=== PATIENT | female | born 2005 | race Caucasian/White ===

== ENCOUNTER 2024-09-22 22:23 | Inpatient (IN) | payer BC, MEDICAID ==
[~2024-09-22] VITALS: Ht 165.1 cm; Wt 67.6 kg
[2024-09-22 22:55] VITALS: O2SAT 100
[2024-09-22 23:28] LABS: BASOPHILS % 0.6 % (0.0-2.0); EOSINOPHILS % 1.0 % (0.0-5.0); HEMATOCRIT. 36.4 % (36.0-48.0); HEMOGLOBIN. 12.4 g/dL (12.0-16.0); LYMPHOCYTES % 26.1 % (20.0-50.0); MEAN PLATELET VOLUME 8.2 fl (7.4-10.4); MONOCYTES % 4.7 % (2.0-8.0); NEUTROPHILS % 67.6 % (40.0-76.0); PLATELET 254 x1000/uL (130-400); RED BLOOD CELL COUNT 4.16 mill/uL (4.2-5.4); RED CELL DISTRIBUTION WIDTH 12.8 % (11.6-14.6)
[2024-09-22 23:41] LABS: CREATININE 0.6 mg/dL (0.6-1.0); UREA NITROGEN BLOOD 10 mg/dL (9-23)
[2024-09-22 23:42] LABS: ETHANOL BLOOD 89 mg/dL (<10)
[2024-09-22 23:59] LABS: HCG SCREEN NEGATIVE
[2024-09-23] MEDS: LORAZEPAM 2MG/ML UD SYRINGE IV NR
[2024-09-23] MEDS: SODIUM CHLORIDE 0.9% 1,000 ML IV ONE
[2024-09-23] MEDS: TOPIRAMATE 25MG TABLET PO NR (00:11)
[2024-09-23 01:39] LABS: CLARITY URINE CLEAR (CLEAR); COLOR URINE YELLOW (YELLOW); GLUCOSE URINE NEGATIVE (NEGATIVE); KETONES URINE NEGATIVE (NEGATIVE); LEUKOCYTE ESTERASE URINE NEGATIVE (NEGATIVE); NITRITE URINE NEGATIVE (NEGATIVE); OCCULT BLOOD URINE NEGATIVE (NEGATIVE); PH URINE 7.5 (4.5-8.0); PROTEIN URINE NEGATIVE (NEGATIVE); SPECIFIC GRAVITY URINE 1.008 (1.005-1.030); UROBILINOGEN URINE 0.2 E.U./dL (0.2-1.0)
[2024-09-23 02:08] LABS: *AMPHETAMINES SCREEN URINE NEGATIVE (NEGATIVE); *BARBITURATES SCREEN URINE NEGATIVE (NEGATIVE); *BENZODIAZEPINES SCREEN URINE NEGATIVE (NEGATIVE); *COCAINE SCREEN URINE NEGATIVE (NEGATIVE); CANNABINOID URINE SCREEN NEGATIVE (NEGATIVE); ECSTASY MDMA SCREEN URINE NEGATIVE (NEGATIVE); METHADONE URINE SCREEN NEGATIVE (NEGATIVE); OPIATES URINE SCREEN NEGATIVE (NEGATIVE); PHENCYCLIDINE URINE SCREEN NEGATIVE (NEGATIVE)
[2024-09-23] MEDS ORDERED: VENL25TA4 MT (03:12)
[2024-09-23] MEDS ORDERED: FLUO1POW12 MC (03:12)
[2024-09-23] MEDS ORDERED: SUMA25TA9 MT (03:12)
[2024-09-23] MEDS ORDERED: BUSP10TA4 PO (03:12)
[2024-09-23] MEDS ORDERED: TOP100 PO (03:12)
[2024-09-23 03:40] VITALS: BP 109/67; PULSE 104; RESP 20; TEMP 37.53
[2024-09-23 04:00] VITALS: BP 130/75; PULSE 75; RESP 18; TEMP 36.6; O2SAT 99
[2024-09-23] MEDS ORDERED: CLONIDINE 0.1MG TABLET PO PRN (06:30)
[2024-09-23] MEDS ORDERED: DOCUSATE SODIUM 100MG CAPSULE PO PRN (06:30)
[2024-09-23] MEDS ORDERED: IPRATROPIUM/ALBUTEROL 0.5-3(2.5)MG/3ML NEB HHN PRN (06:30)
[2024-09-23] MEDS ORDERED: ONDANSETRON HCL 4MG/2ML INJ IV PRN (06:30)
[2024-09-23] MEDS ORDERED: ACETAMINOPHEN 325MG TABLET PO PRN ×2 (06:30)
[2024-09-23 07:36] LABS: BASOPHILS % 0.3 % (0.0-2.0); EOSINOPHILS % 0.8 % (0.0-5.0); HEMATOCRIT. 37.1 % (36.0-48.0); HEMOGLOBIN. 12.5 g/dL (12.0-16.0); LYMPHOCYTES % 17.2 % (20.0-50.0); MEAN PLATELET VOLUME 8.6 fl (7.4-10.4); MONOCYTES % 6.7 % (2.0-8.0); NEUTROPHILS % 75.0 % (40.0-76.0); PLATELET 249 x1000/uL (130-400); RED BLOOD CELL COUNT 4.24 mill/uL (4.2-5.4); RED CELL DISTRIBUTION WIDTH 12.7 % (11.6-14.6)
[2024-09-23 07:38] LABS: CREATININE 0.5 mg/dL (0.6-1.0)
[2024-09-23 07:39] LABS: UREA NITROGEN BLOOD 7 mg/dL (9-23)
[2024-09-23 07:40] LABS: ASPARTATE AMINOTRANSFERASE 28 IU/L (<34); BILIRUBIN DIRECT 0.1 mg/dL (<=3.0)
[2024-09-23 07:41] LABS: BILIRUBIN TOTAL 0.4 mg/dL (0.1-1.0); PHOSPHORUS 2.9 mg/dL (2.5-4.9); PROTEIN TOTAL 6.3 g/dL (6.0-8.3)
[2024-09-23 08:00] VITALS: BP 127/65; PULSE 79; RESP 18; TEMP 36.9; O2SAT 99
[2024-09-23 08:16] LABS: HEPATITIS C AB NON REACTIVE (Neg) (Negative)
[2024-09-23] MEDS ORDERED: TOPIRAMATE 100MG TABLET PO SCH (09:00)
[2024-09-23] MEDS: LEVETIRACETAM 500MG TABLET PO SCH (09:11)
[2024-09-23] MEDS: THIAMINE HCL 100MG TABLET PO SCH (09:12)
[2024-09-23] MEDS: TOPIRAMATE 25MG TABLET PO SCH (09:12)
[2024-09-23] MEDS: MULTIVITAMINS,THER W-MINERALS TABLET PO SCH (09:12)
[2024-09-23] MEDS: BUSPIRONE HCL 5MG TABLET PO SCH (09:17)
[2024-09-23] MEDS: FOLIC ACID 1MG TABLET PO SCH (09:17)
[2024-09-23] MEDS: FLUOXETINE HCL 10 MG CAPSULE PO SCH (09:19)
[2024-09-23 12:00] VITALS: BP 110/60; PULSE 81; RESP 20; TEMP 36.7; O2SAT 98
[2024-09-23] MEDS ORDERED: LORAZEPAM 1MG TABLET PO PRN (12:55)
[2024-09-23 13:18] LABS: INR 1.0
[2024-09-23 16:00] VITALS: BP 118/67; PULSE 83; RESP 20; TEMP 36.7; O2SAT 99
== END 2024-09-23 18:40 | disposition left against medical advice (07) | DRG 101 ==
LOC: ER 22:23 → EDBEDREQ 09-23 01:24 → EDBEDREQTM 09-23 01:24 → EDBEDREQDT 09-23 01:24 → ENRESERV 09-23 01:32 → 8WST 09-23 03:19
PROVIDERS: ADMIT Internal Medicine; ATTEND Internal Medicine
DX: G40.909 Epilepsy, unspecified, not intractable, without status epilepticus (principal)
CPT/HCPCS: 36415; 70551; 80048; 80076; 80305; 80320; 81003; 82550; 83735; 84100; 84145; 84703; 85025; 86705; 87340; 93005; J2060; J7030; G0480